=== PATIENT | male | born 1945 | race Caucasian/White ===

== ENCOUNTER 2017-09-10 05:54 | Day surgery (SDC) | payer MEDICARE, OTHER ==
[2017-09-10] MEDS ORDERED: DIPRIVAN 200 MG/20 ML IV ONE (05:55)
[2017-09-10] MEDS ORDERED: Ketamine HCl 50 MG/ML IJ ONE (05:55)
[2017-09-10] MEDS ORDERED: Lactated Ringers 1,000 ML IV SCH (06:30)
[2017-09-10 08:43] VITALS: BP 106/76; PULSE 95; O2SAT 96
--- NOTE | 2017-09-10 10:50 | OP ---
SURGERY DATE/TIME: 09/10/2017 0700 PREOPERATIVE DIAGNOSIS: Positive Cologuard test. POSTOPERATIVE DIAGNOSES: 1) Normal colon. 2) Scattered diverticulosis. PROCEDURE: Diagnostic colonoscopy. SURGEON: Luis Valdez M.D. ANESTHESIA: MAC by Cesar Merchant CRNA. ESTIMATED BLOOD LOSS: None. SPECIMENS: None. DESCRIPTION OF PROCEDURE: After informed written consent was obtained, the patient was taken to the endoscopy suite. He underwent monitored anesthesia and digital rectal exam showed normal sphincter tone and no internal lesions. The scope was inserted into the rectum and sequentially the entire colonic mucosa was traversed. There was note of scattered diverticula throughout the entire length of the colon with no focal concentrated area. The level of the cecum was reached and verified with direct visualization of ileocecal valve. Upon withdrawal careful mucosal inspection again only revealed some scattered diverticula but no other obvious lesions or defects. The prep was noted to be fair. There were a few areas with some semisolid stool present which was irrigated and suctioned as best as possible to aid in better view. Prior to withdrawal retroflexion was performed and showed no internal lesions. The scope was removed and the patient was transferred to the recovery room in good condition.
== END 2017-09-10 08:53 | disposition home or self-care (01) ==
LOC: SDC 05:54
PROVIDERS: ATTEND Family Medicine
PROC: 0DJD8ZZ Inspection of Lower Intestinal Tract, Via Natural or Artificial Opening Endoscopic (ICD-10-PCS; principal; 2017-09-10)
DX: K57.90 Diverticulosis of intestine, part unspecified, without perforation or abscess without bleeding (principal)
CPT/HCPCS: 00810; 99100; J2704

== ENCOUNTER 2023-09-23 06:24 | Emergency (ER) | payer MEDICARE, OTHER ==
[2023-09-23 06:48] VITALS: TEMP 99.3
[2023-09-23] MEDS ORDERED: DUONEB 0.5-3 MG/3 ml Neb IH ONE ×2 (07:31→07:43)
[2023-09-23 07:46] LABS: INFLUENZA A NEGATIVE (NEGATIVE); INFLUENZA B NEGATIVE (NEGATIVE); SARS-CoV-2 Xpert Express NEGATIVE (NEGATIVE)
[2023-09-23 07:47] LABS: RESPIRATORY SYNCTIAL VIRUS POSITIVE (NEGATIVE)
[2023-09-23 08:00] VITALS: RESP 18; O2SAT 95
[2023-09-23] MEDS ORDERED: DELTASONE 20 MG PO ONE (08:13)
--- NOTE | 2023-09-23 08:18 | ERPHSYRPT ---
- History of Present Illness Time Seen by Provider: 09/23/23 07:10 Exam Limitations: no limitations Patient Subjective Stated Complaint: pt here for nasal congestion that has been going on for a while Triage Nursing Assessment: pt presents to ED with , pt transferred from wheelchair to cot with assist x2, pt c/o nasal congestion for the last month, pt states "It just is a nuisance anymore." pt has hx of COPD and states that he feels more "wheezy" than normal, no wheezing noted, clear lung sounds throughout and slightly diminished in L upper Lobe, no JVD noted, no edema Physician History: 78-year-old male presents to our ED for evaluation of nasal congestion and wheezing. Patient has a history of COPD/asthma. He is a type II diabetic with controlled hypertension. Symptoms started several weeks ago. Patient states his primary care physician started him on prednisone. His symptoms improved significantly. Patient states since he ran out of prednisone he has since developed the same shortness of breath. No associated chest pain. Patient has history of A-fib currently on Xarelto. Patient otherwise feels well. No nausea vomiting. No numbness tingling or weakness. No diaphoresis. Symptoms are mild to moderate in intensity. No specific worsening improving factors. Patient otherwise feels well. He voices no other complaints or concerns at this time. at bedside. Portions of this note were created with voice recognition technology. There may be grammatical, spelling, punctuation or sound alike errors Timing/Duration: week(s) (3 weeks) Severity: moderate Modifying Factors: Improves With: nothing Associated Symptoms: denies symptoms Allergies/Adverse Reactions: polyester fibers Allergy (Mild, Verified 09/23/23 06:35) Home Medications: Benazepril HCl [Lotensin] 40 mg PO DAILY 03/03/17 [History] Hydrocodone/Acetaminophen [[place] 7.5-325 Tablet] 1 each PO Q6-8HPRN PRN 03/03/17 [History] Rivaroxaban [Xarelto] 20 mg PO DAILY 03/03/17 [History] Metoprolol Succinate 25 mg PO DAILY 09/10/17 [History] Gabapentin [Neurontin] 300 mg PO TID 09/23/23 [History] Metformin HCl 500 mg [Glucophage 500 MG] 500 mg PO BID 09/23/23 [History] Hx Influenza Vaccination/Date Given: Yes Hx Pneumococcal Vaccination/Date Given: Yes Immunizations Up to Date: Yes Travel Risk - International Travel Have you traveled outside of the country in past 3 weeks: No - Coronavirus Screening Are you exhibiting any of the following symptoms?: Yes Symptoms: Cough: New Onset - Vaccine Status Have you recieved a Covid-19 vaccination: Yes 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 - Vaccination Dates Dates if Unknown: unk - Review of Systems Constitutional: No Symptoms, No Fever, No Chills Eyes: No Symptoms Ears, Nose, & Throat: No Symptoms Respiratory: No Symptoms, No Cough, No Dyspnea Cardiac: No Symptoms, No Chest Pain, No Edema, No Syncope Abdominal/Gastrointestinal: No Symptoms, No Abdominal Pain, No Nausea, No Vomiting, No Diarrhea Genitourinary Symptoms: No Symptoms, No Dysuria Musculoskeletal: No Symptoms, No Back Pain, No Neck Pain Skin: No Symptoms, No Rash Neurological: No Symptoms, No Dizziness, No Focal Weakness, No Sensory Changes Psychological: No Symptoms Endocrine: No Symptoms Hematologic/Lymphatic: No Symptoms Immunological/Allergic: No Symptoms All Other Systems: Reviewed and Negative - Past Medical History Pertinent Past Medical History: Yes Neurological History: Peripheral Neuropathy ENT History: No Pertinent History Cardiac History: Arrhythmia, Hypertension, Other Respiratory History: Asthma, Sleep Apnea Endocrine Medical History: Diabetes Type II Musculoskeletal History: Osteoarthritis GI Medical History: Ulcer History: No Pertinent History Psycho-Social History: Depression Male Reproductive Disorders: No Pertinent History Other Medical History: Afib, L carpal tunnel surgery. He notes R hand numbness at times. In 1999 had burning in B knees, he had been walking 3 miles a day. He was told to stop walking and was told he was not a candidate for TKA. Blood clots in L LE, lungs. - Past Surgical History Past Surgical History: Yes Neuro Surgical History: No Pertinent History Cardiac: No Pertinent History Respiratory: No Pertinent History Gastrointestinal: Hernia Repair Genitourinary: No Pertinent History Musculoskeletal: Orthopedic Surgery Male Surgical History: No Pertinent History Other Surgical History: lt hand carpal tunnel - Social History Smoking Status: Former smoker Exposure to second hand smoke: No Drug Use: none Patient Lives Alone: No - Nursing Vital Signs Nursing Vital Signs: Initial Vital Signs Blood Pressure 142/83 09/23/23 06:35 O2 Sat by Pulse Oximetry 93 L 09/23/23 06:35 Pain Scale Pain Intensity 0 - Physical Exam General Appearance: no apparent distress, alert Eye Exam: PERRL/EOMI, eyes nml inspection Ears, Nose, Throat Exam: normal ENT inspection, TMs normal, pharynx normal, moist mucous membranes, other (nasal congestion) Neck Exam: normal inspection, non-tender, supple, full range of motion Respiratory Exam: airway intact, diminished breath sounds, wheezing, No respiratory distress Cardiovascular Exam: regular rate/rhythm, normal heart sounds, normal peripheral pulses Gastrointestinal/Abdomen Exam: soft, normal bowel sounds, No tenderness, No mass Back Exam: normal inspection, normal range of motion, No CVA tenderness, No vertebral tenderness Extremity Exam: normal inspection, normal range of motion, pelvis stable Neurologic Exam: alert, oriented x 3, cooperative, normal mood/affect, sensation nml, No motor deficits Skin Exam: normal color, warm, dry, No rash Lymphatic Exam: No adenopathy SpO2 Interpretation: normal SpO2: 95 O2 Delivery: Room Air - Course Nursing assessment & vital signs reviewed: Yes EKG Interpreted by Me: RATE (71), A-fib, NORMAL AXIS, NORMAL INTERVALS - Radiology Exams Chest X-ray Interpretation: Interpreted by me (No acute changes. Similar to previous) Ordered Tests: Active Orders 24 hr Category Date Time Status CHEST 1 VIEW (PORTABLE) Stat Exams 09/23/23 06:43 Taken Medication Summary Discontinued Medications Generic Name Dose Route Start Last Admin Trade Name Gonzálezq PRN Reason Stop Dose Admin Albuterol/Ipratropium 3 ml 09/23/23 07:31 09/23/23 07:47 Ipratropium/Albuterol Sulfate 3 Ml Ampul.Neb IH 09/23/23 07:32 3 ml STAT ONE Administration Albuterol/Ipratropium Confirm 09/23/23 07:43 Ipratropium/Albuterol Sulfate 3 Ml Ampul.Neb Administered 09/23/23 07:44 Dose 3 ml IH .STK-MED ONE Lab/Rad Data: Laboratory Results 09/23/23 Range/Units 07:00 Influenza Type A Ag NEGATIVE (NEGATIVE) Influenza Type B Ag NEGATIVE (NEGATIVE) RSV (PCR) POSITIVE (NEGATIVE) SARS-CoV-2 (PCR) NEGATIVE (NEGATIVE) - Progress Progress: improved Progress Note: 78-year-old male presents to our ED for evaluation of some shortness of breath nasal congestion and wheezing. No associated chest pain. No nausea vomiting or diaphoresis. Physical exam reveals wheezing. No respiratory distress. Patient otherwise conversant well-appearing. at bedside served as a primary historian. Test ordered include RSV COVID influenza/chest x-ray. Patient is RSV positive. Influenza COVID-negative. Dr. Murrell independently reviewed the chest x-ray. No acute findings. Comparison was made to 09/23/2019 chest x-ray. Screening EKG reveals atrial fibrillation with a rate of 71. Patient is currently anticoagulated on Xarelto. Patient received DuoNeb treatment as well as prednisone. Patient ambulated throughout our ED. O2 sat remained 93% with exertion. O2 sat at rest is 95%. Patient had no complaints. No chest pain or shortness of breath during exertion. Will discharge patient home. A prescription for albuterol inhaler and prednisone forwarded to patient's pharmacy. Patient agrees to follow-up with his primary care doctor within 48 hours for evaluation. He voices no other complaints or concerns at this time. Portions of this note were created with voice recognition technology. There may be grammatical, spelling, punctuation or sound alike errors Complexity of problems addressed is moderate acute complicated No critical care time Complex of data reviewed and analyzed is extensive. Patient's served as a primary historian Dr. Murrell independently reviewed the EKG which revealed rate controlled atrial fibrillation. Chest x-ray independently reviewed by Dr. Murrell. Radiology service not available to later this morning Risk of complication and or risk of morbidity/mortality of patient management is moderate. A prescription for an albuterol inhaler and prednisone forwarded to patient's pharmacy. Vital stable. Time spent to discharge patient is approximately 15 minutes. Patient is RSV positive. Plan of care established for shared decision making. No social determinants of health present impede follow-up. Portions of this note were created with voice recognition technology. There may be grammatical, spelling, punctuation or sound alike errors 09/23/23 08:30 Counseled pt/family regarding: lab results, diagnosis, need for follow-up, rad results - Departure Departure Disposition: Home Clinical Impression: RSV infection, Wheezing, URI (upper respiratory infection) Condition: Stable Critical Care Time: No Referrals: FERNANDA CUNNINGHAM DO [Primary Care Provider] - Follow up/PCP as directed Additional Instructions: Discharge/Care Plan MISAEL MEDEL was seen on 09/23/23 in the Emergency Room. The patient was counseled regarding Diagnosis,Lab results, Imaging studies, need for follow up and when to return to the Emergency Room. Prescriptions given: Discharge Note I have spoken with the patient and/or caregivers. I have explained the patient's condition, diagnosis and treatment plan based on the information available to me at this time. I have answered the patient's and/or caregiver's questions and addressed any concerns. The patient and/or caregivers have as good understanding of the patient's diagnosis, condition and treatment plan as can be expected at this point. The vital signs have been stable. The patient's condition is stable and appropriate for discharge from the emergency department. The patient will pursue further outpatient evaluation with the primary care physician or other designated or consulting physician as outlined in the discharge instructions. The patient and/or caregivers are agreeable to this plan of care and follow-up instructions have been explained in detail. The patient and/or caregivers have received these instruction. The patient/and or caregivers are aware that any significant change in condition or worsening of symptoms should prompt an immediate return to this or the closest emergency department or call 911. Prescriptions: Prednisone 10 mg [Deltasone 10 mg] 40 mg PO DAILY 3 Days #12 tablet Albuterol 8 gm Mdi Hfa [Ventolin Hfa MDI] 8 gm IH Q4H #1 unit
[2023-09-23] MEDS ORDERED: DELTASONE 20 MG ONE (08:34)
[2023-09-23 08:39] VITALS: BP 128/73; PULSE 74
--- NOTE | 2023-09-23 08:39 | XRAY ---
Indication: Wheezing. Congestion. Comparison: September 23, 2019 Portable chest remains clear. Heart borderline enlarged. Bony thorax intact again with mild degenerative changes. Impression: Continue nonacute chest with chronic features.
== END 2023-09-23 08:41 | disposition home or self-care (01) ==
LOC: ED 06:24
DX: J06.9 Acute upper respiratory infection, unspecified (principal); B97.4 Respiratory syncytial virus as the cause of diseases classified elsewhere; R06.2 Wheezing; R09.81 Nasal congestion; E11.42 Type 2 diabetes mellitus with diabetic polyneuropathy; I10 Essential (primary) hypertension; Z79.52 Long term (current) use of systemic steroids; Z79.01 Long term (current) use of anticoagulants; Z79.84 Long term (current) use of oral hypoglycemic drugs; Z79.899 Other long term (current) drug therapy; Z20.828 Contact with and (suspected) exposure to other viral communicable diseases
CPT/HCPCS: 0241U; 71045; 93005; 94640; 99283; A9270-GY

== ENCOUNTER 2023-09-30 22:23 | Emergency (ER) | payer MEDICARE ==
[2023-09-30 22:27] VITALS: TEMP 101.3
--- NOTE | 2023-09-30 22:30 | ERPHSYRPT ---
- History of Present Illness Time Seen by Provider: 09/30/23 22:30 Source: patient Exam Limitations: no limitations Physician History: This patient is 78 years old. He is a white male patient of Dr. Cunningham. Patient was diagnosed with RSV infection on 09/23/2023. Patient has a history of hypertension, atrial fibrillation on Xarelto, peripheral neuropathy, sleep apnea, diabetes, depression and osteoarthritis. Patient states that his symptoms are worsening in the last several days. He is coughing, he has a runny nose, shortness of breath. And worsening headache. He states that he is wheezing. He is having productive cough of amin/corral sputum. He has room air oxygenation saturation level is 95%. Timing/Duration: day(s) (Symptoms worsening over the last 2 to 3 days), worse Severity of Dyspnea-Max: mild Severity of Dyspnea-Current: mild Associated Symptoms: cough, wheezing, weakness, No chest pain/discomfort Allergies/Adverse Reactions: polyester fibers Allergy (Mild, Verified 09/30/23 22:43) Home Medications: Benazepril HCl [Lotensin] 40 mg PO DAILY 03/03/17 [History] Hydrocodone/Acetaminophen [[place] 7.5-325 Tablet] 1 each PO Q6-8HPRN PRN 03/03/17 [History] Rivaroxaban [Xarelto] 20 mg PO DAILY 03/03/17 [History] Metoprolol Succinate 25 mg PO DAILY 09/10/17 [History] Gabapentin [Neurontin] 600 mg PO BID 09/23/23 [History] Hx Influenza Vaccination/Date Given: Yes Hx Pneumococcal Vaccination/Date Given: Yes Travel Risk - Coronavirus Screening Are you exhibiting any of the following symptoms?: Yes Symptoms: Cough: New Onset, Shortness of Breath Close contact with a COVID-19 positive Pt in past 14-21 Days: No - Vaccine Status Have you recieved a Covid-19 vaccination: Yes Corporation Officer: Unknown - Vaccination Dates Dates if Unknown: unk - Review of Systems Constitutional: Weakness Eyes: No Symptoms Ears, Nose, & Throat: No Symptoms Respiratory: Cough, Dyspnea, Wheezing Cardiac: No Symptoms Abdominal/Gastrointestinal: No Symptoms Genitourinary Symptoms: No Symptoms Musculoskeletal: No Symptoms Skin: No Symptoms Neurological: No Symptoms Psychological: No Symptoms Endocrine: No Symptoms Hematologic/Lymphatic: No Symptoms Immunological/Allergic: No Symptoms All Other Systems: Reviewed and Negative - Past Medical History Pertinent Past Medical History: Yes Neurological History: Peripheral Neuropathy ENT History: No Pertinent History Cardiac History: Arrhythmia, Hypertension, Other Respiratory History: Asthma, Sleep Apnea Endocrine Medical History: Diabetes Type II Musculoskeletal History: Osteoarthritis GI Medical History: Ulcer History: No Pertinent History Psycho-Social History: Depression Male Reproductive Disorders: No Pertinent History Other Medical History: Afib, L carpal tunnel surgery. He notes R hand numbness at times. In 1999 had burning in B knees, he had been walking 3 miles a day. He was told to stop walking and was told he was not a candidate for TKA. Blood clots in L LE, lungs. - Past Surgical History Past Surgical History: Yes Neuro Surgical History: No Pertinent History Cardiac: No Pertinent History Respiratory: No Pertinent History Gastrointestinal: Hernia Repair Genitourinary: No Pertinent History Musculoskeletal: Orthopedic Surgery Male Surgical History: No Pertinent History Other Surgical History: lt hand carpal tunnel - Social History Smoking Status: Former smoker Exposure to second hand smoke: No Drug Use: none Patient Lives Alone: No - Nursing Vital Signs Nursing Vital Signs: Initial Vital Signs Temperature 101.3 F 09/30/23 22:24 Pulse Rate 93 H 09/30/23 22:24 Respiratory Rate 24 09/30/23 22:24 Blood Pressure 125/62 09/30/23 22:24 O2 Sat by Pulse Oximetry 95 09/30/23 22:24 Pain Scale Pain Intensity 2 - Physical Exam General Appearance: no apparent distress, alert, anxiety Eye Exam: PERRL/EOMI, eyes nml inspection Ears, Nose, Throat Exam: hearing grossly normal, normal ENT inspection, normal pharynx Neck Exam: normal inspection, non-tender, supple, full range of motion Respiratory Exam: normal breath sounds, lungs clear, airway intact, No chest tenderness, No respiratory distress Cardiovascular/Chest Exam: normal heart sounds, regular rate/rhythm Abdominal/Gastrointestinal Exam: soft, normal bowel sounds, No tenderness Rectal Exam: not done Extremity Exam: non-tender, normal range of motion, normal inspection Neurologic Exam: alert, oriented x 3, cooperative, 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 nml as tested, normal mood/affect, sensation nml Skin Exam: normal color, warm, dry Lymphatic Exam: inguinal node tender (L), No adenopathy SpO2 Interpretation: normal SpO2: 95 O2 Delivery: Room Air - Course Nursing assessment & vital signs reviewed: Yes EKG Interpreted by Me: RATE (78), A-fib, NORMAL INTERVALS, NORMAL QRS, Other (No acute ischemic changes on today's twelve-lead EKG.) Ordered Tests: Active Orders 24 hr Category Date Time Status Bracer STAT Care 09/30/23 23:08 Active EKG-ER Only STAT Care 09/30/23 23:08 Active Pulse Oximetry (ED) STAT Care 09/30/23 23:08 Active CHEST 1 VIEW (PORTABLE) Stat Exams 09/30/23 23:08 Taken BLOOD CULTURE Stat Lab 09/30/23 00:20 Received CBC W DIFF Stat Lab 09/30/23 23:08 Completed CMP Stat Lab 09/30/23 00:10 Completed NT PRO BNPII Stat Lab 09/30/23 00:10 Completed TROPONIN Q4H Lab 09/30/23 00:10 Completed TROPONIN Q4H Lab 10/01/23 03:15 Ordered TROPONIN Q4H Lab 10/01/23 07:15 Ordered Medication Summary Discontinued Medications Generic Name Dose Route Start Last Admin Trade Name Esequiel PRN Reason Stop Dose Admin Methylprednisolone Sodium 0 mg 09/30/23 23:08 10/01/23 00:22 Succinate 125 mg/ Sterile IV 09/30/23 23:09 125 mg Water 2 ml STAT ONE Administration Methylprednisolone Sodium Succinate Confirm 10/01/23 00:20 Methylprednis Sod Succ 125 Mg/2 Ml Vial Administered 10/01/23 00:21 Dose 125 mg .ROUTE .STK-MED ONE Sterile Water Confirm 10/01/23 00:20 Water For Injection,Sterile 10 Ml Vial Administered 10/01/23 00:21 Dose 10 ml IJ .STK-MED ONE Lab/Rad Data: Laboratory Result Diagrams 09/30/23 23:08 09/30/23 00:10 Laboratory Results 09/30/23 09/30/23 09/30/23 Range/Units 23:08 00:10 00:10 WBC 9.9 (4.0-10.5) x10^3/uL RBC 4.21 (4.1-5.6) x10^6/uL Hgb 13.6 (12.5-18.0) g/dL Hct 41.2 L (42-50) % MCV 97.9 (78-100) fL MCH 32.3 H (26-32) pg MCHC 33.0 (32-36) g/dL RDW 13.3 (11.5-14.0) % Plt Count 201 (150-450) x10^3/uL MPV 10.8 (7.5-11.0) fL Gran % 75.5 H (36.0-66.0) % Immature Gran % (Auto) 0.7 H (0.00-0.4) % Nucleat RBC Rel Count 0.0 (0.00-0.1) % Eos # (Auto) 0.16 (0-0.5) x10^3/uL Immature Gran # (Auto) 0.07 H (0.00-0.03) x10^3u/L Absolute Lymphs (auto) 1.36 (1.0-4.6) x10^3/uL Absolute Monos (auto) 0.81 (0.0-1.3) x10^3/uL Absolute Nucleated RBC 0.00 (0.00-0.01) x10^3u/L Lymphocytes % 13.8 L (24.0-44.0) % Monocytes % 8.2 (0.0-12.0) % Eosinophils % 1.6 (0.00-5.0) % Basophils % 0.2 (0.0-0.4) % Absolute Granulocytes 7.43 H (1.4-6.9) x10^3/uL Basophils # 0.02 (0-0.4) x10^3/uL Sodium (137-145) mmol/L Potassium (3.5-5.1) mmol/L Chloride (98-107) mmol/L Carbon Dioxide (22-30) mmol/L Anion Gap (5-15) MEQ/L BUN (9-20) mg/dL Creatinine (0.66-1.25) mg/dL Estimated GFR ML/MIN Glucose (74-106) mg/dL Calcium (8.4-10.2) mg/dL Total Bilirubin (0.2-1.3) mg/dL AST (17-59) U/L ALT (0-50) U/L Alkaline Phosphatase (38-126) U/L Troponin I < 0.012 (0.000-0.034) ng/mL NT-Pro-B Natriuret Pep 1250 (<300) pg/mL Serum Total Protein (6.3-8.2) g/dL Albumin (3.5-5.0) g/dL 09/30/23 Range/Units 00:10 WBC (4.0-10.5) x10^3/uL RBC (4.1-5.6) x10^6/uL Hgb (12.5-18.0) g/dL Hct (42-50) % MCV (78-100) fL MCH (26-32) pg MCHC (32-36) g/dL RDW (11.5-14.0) % Plt Count (150-450) x10^3/uL MPV (7.5-11.0) fL Gran % (36.0-66.0) % Immature Gran % (Auto) (0.00-0.4) % Nucleat RBC Rel Count (0.00-0.1) % Eos # (Auto) (0-0.5) x10^3/uL Immature Gran # (Auto) (0.00-0.03) x10^3u/L Absolute Lymphs (auto) (1.0-4.6) x10^3/uL Absolute Monos (auto) (0.0-1.3) x10^3/uL Absolute Nucleated RBC (0.00-0.01) x10^3u/L Lymphocytes % (24.0-44.0) % Monocytes % (0.0-12.0) % Eosinophils % (0.00-5.0) % Basophils % (0.0-0.4) % Absolute Granulocytes (1.4-6.9) x10^3/uL Basophils # (0-0.4) x10^3/uL Sodium 135 L (137-145) mmol/L Potassium 3.9 (3.5-5.1) mmol/L Chloride 102 (98-107) mmol/L Carbon Dioxide 25 (22-30) mmol/L Anion Gap 12.7 (5-15) MEQ/L BUN 13 (9-20) mg/dL Creatinine 0.78 (0.66-1.25) mg/dL Estimated GFR 91.9 ML/MIN Glucose 177 H (74-106) mg/dL Calcium 9.2 (8.4-10.2) mg/dL Total Bilirubin 1.40 H (0.2-1.3) mg/dL AST 27 (17-59) U/L ALT 28 (0-50) U/L Alkaline Phosphatase 60 (38-126) U/L Troponin I (0.000-0.034) ng/mL NT-Pro-B Natriuret Pep (<300) pg/mL Serum Total Protein 7.6 (6.3-8.2) g/dL Albumin 3.9 (3.5-5.0) g/dL - Progress Progress: improved, re-examined Air Movement: good Progress Note: 10/01/23 00:11 This patient's medical issue is 1 of moderate complexity. The level complex in the workup performed is based on review of the patient's past medical history, review of the patient's medication list, review of the patient's drug allergy list, history present illness and physical findings on examination. The workup in this patient includes placement of intravenous line, troponin level, BNP level, chest x-ray, twelve-lead EKG, CBC, CMP. We will also provide the patient with Solu-Medrol intravenously. I will have respiratory therapy evaluate this patient. 10/01/23 00:32 I reviewed and interpreted the laboratory results that are back at this time. We are still waiting on the troponin and BNP level. The remainder of the labs show no acute, emergent findings. The chest x-ray was interpreted by me. I do not appreciate a definite infiltrate. I reexamined the patient. After receiving the Solu-Medrol, the patient states he is breathing much better. Since his sputum is amin and corral color, we will send a prescription for antibiotic and steroids to his pharmacy remotely. I will follow-up on this patient's BNP and troponin prior to his discharge. 10/01/23 00:51 I interpreted the BNP based on the patient's age. It is in the corral zone for CHF. I will not provide the patient with any diuretic at this time. Patient's troponin level is within normal limits. 10/01/23 01:02 States he is feeling much better and wants to go home. He denies shortness of breath. He denies chest pain. Blood Culture(s) Obtained: Yes Counseled pt/family regarding: lab results, diagnosis, rad results Medical Desision Making - Independent Historian Additional History obtained from: Spouse - Diagnostic Testing Diagnostic test were ordered, analyzed, and reviewed by me: Yes Radiological Interpretation: Interpreted by me - Risk of complications The pt has a mod risk of morbidity or mortality based on: Need for prescription drug management - Departure Departure Disposition: Home Clinical Impression: Cough, RSV bronchitis, Upper respiratory infection Condition: Stable Critical Care Time: No Referrals: FERNANDA CUNNINGHAM DO [Primary Care Provider] - Follow up/PCP as directed Additional Instructions: Drink plenty of clear liquids. Take your medication as prescribed. Call your primary care provider later today, 10/01/2023, to make arranges for follow-up appointment for further evaluation management. Prescriptions: Benzonatate 200 mg PO TID PRN #10 cap PRN Reason: Cough Cefdinir 300 mg PO BID #14 cap Prednisone 10 mg [Deltasone 10 mg] 10 mg PO TID #12 tablet
[2023-09-30] MEDS ORDERED: solu-MEDROL 125 MG, Sterile H2O 10 ml 2 ML IV ONE ×2 (23:08)
[2023-10-01 00:14] LABS: Absolute Neutrophil Ct (ANC) 7.43 x10^3/uL (1.4-6.9); BASOPHIL % 0.2 % (0.0-0.4); Basophil (Absolute #) 0.02 x10^3/uL (0-0.4); Eosinophil % 1.6 % (0.00-5.0); Eosinophil (Absolute #) 0.16 x10^3/uL (0-0.5); Hematocrit 41.2 % (42-50); Hemoglobin 13.6 g/dL (12.5-18.0); IMMATURE GRAN # 0.07 x10^3u/L (0.00-0.03); IMMATURE GRAN % 0.7 % (0.00-0.4); Lymphocyte (Absolute #) 1.36 x10^3/uL (1.0-4.6); Lymphocytes % 13.8 % (24.0-44.0); Mean Cell Volume 97.9 fL (78-100); Mean Corpuscular Hemoglobin 32.3 pg (26-32); Mean Platelet Volume 10.8 fL (7.5-11.0); Monocyte (Absolute #) 0.81 x10^3/uL (0.0-1.3); Monocytes % 8.2 % (0.0-12.0); Neutrophil % 75.5 % (36.0-66.0); Platelet Count 201 x10^3/uL (150-450); Red Blood Count 4.21 x10^6/uL (4.1-5.6); Red Cell Distribution Width 13.3 % (11.5-14.0); White Blood Count 9.9 x10^3/uL (4.0-10.5)
[2023-10-01] MEDS ORDERED: solu-MEDROL ONE (00:20)
[2023-10-01] MEDS ORDERED: Sterile H2O 10 ml IJ ONE (00:20)
[2023-10-01 00:26] LABS: ALBUMIN 3.9 g/dL (3.5-5.0); ANION GAP 12.7 MEQ/L (5-15); BILIRUBIN,TOTAL 1.4 mg/dL (0.2-1.3); Calcium 9.2 mg/dL (8.4-10.2); Creatinine 1 0.78 mg/dL (0.66-1.25); EST GLOMERULAR FILTRATION RATE 91.9 ML/MIN; Potassium 3.9 mmol/L (3.5-5.1); Total Protein 7.6 g/dL (6.3-8.2)
[2023-10-01 01:42] VITALS: BP 155/85; PULSE 82; RESP 22; O2SAT 94
--- NOTE | 2023-10-01 08:54 | XRAY ---
Indication: Short of breath. Cough. Comparison: September 23, 2023 Portable chest demonstrates new mild bibasilar infiltrates versus atelectasis. Remaining heart and upper lungs unremarkable. Bony thorax intact again with mild degenerative changes. Comparison: Lung findings not reported by interpreting ER clinician. Telephone report given to Dr. Zuñiga at 0849 hrs. on October 01, 2023.
== END 2023-10-01 01:37 | disposition home or self-care (01) ==
LOC: ED 22:23
DX: J20.5 Acute bronchitis due to respiratory syncytial virus (principal); R05.1 Acute cough; R06.02 Shortness of breath; R51.9 Headache, unspecified; I10 Essential (primary) hypertension; E11.42 Type 2 diabetes mellitus with diabetic polyneuropathy; Z79.01 Long term (current) use of anticoagulants; Z79.52 Long term (current) use of systemic steroids; Z79.899 Other long term (current) drug therapy
CPT/HCPCS: 36415; 71045; 80053; 83880; 84484; 85025; 87040; 93005; 93041; 94760; 99284; J2930